=== PATIENT | female | born 1930 | race African-American/Black ===

== ENCOUNTER 2016-11-17 12:59 | Observation (INO) | payer MEDICARE ==
[~2016-11-17 12:59] MED LIST: ALBUTEROL17 GM INH; ASPIRIN325 MG PO; ATIVAN0.5 MG PO; BYSTOLIC10 MG PO; COLACE-T100 MG PO; CRESTOR10 MG PO; CYMBALTA60 MG PO; EXFORGE 10-3201 TAB PO; IMDUR30 MG PO; KETOTIFEN FUMARA5 ML LEFT EYE; LASIX40 MG PO; MICRO-K10 MEQ PO; NASONEX17 GM NS; NITROGLYCERIN0.4 MG SL; PRILOSEC20 MG PO; REFRESH EYE DRO50 EA BOTH EYES; REFRESH5 ML BOTH EYES; SINGULAIR10 MG PO; SYMBICORT 160-4.6 GM IH; TRAMADOL HCL50 MG PO; VICODIN 5/500 T1 TAB PO; XALATAN2.5 ML EACH EYE
[2016-11-17] MEDS ORDERED: DOXYCYCLINE HY100 M3 PO (13:30)
[2016-11-17] MEDS ORDERED: VIRTUSSIN AC L118 ML PO (13:30)
[2016-11-17] MEDS ORDERED: PREDNISONE10 M1 PO (13:30)
[2016-11-17] MEDS ORDERED: OMEPRAZOLE20 M3 PO (13:31)
[2016-11-17] MEDS ORDERED: BYSTOLIC20 M1 PO (13:31)
[2016-11-17] MEDS ORDERED: CYMBALTA60 M1 PO (13:31)
[2016-11-17] MEDS ORDERED: AMITRIPTYLINE H25 M1 PO (13:31)
[2016-11-17] MEDS ORDERED: SYMBICORT 160-1 PUFF INH (13:31)
[2016-11-17] MEDS ORDERED: ROSUVASTATIN CA20 MG PO (13:32)
[2016-11-17] MEDS ORDERED: ATIVAN0.5 M1 PO (13:32)
[2016-11-17] MEDS ORDERED: ASPIRIN EC81 MG PO (13:47)
[2016-11-17] MEDS ORDERED: PROAIR HFA8.5 GM INH (13:50)
[2016-11-17] MEDS ORDERED: IPRAT-ALBUT 0.5-3 ML INH (13:51)
[2016-11-17] MEDS ORDERED: COSOPT EYE DROP10 ML EACH EYE (13:52)
[2016-11-17] MEDS ORDERED: TYLENOL EXTRA500 M1 PO (13:52)
[2016-11-17] MEDS ORDERED: POTASSIUM CHLO10 ME2 PO (13:52)
[2016-11-17] MEDS ORDERED: VITAMIN D250000 UNI1 PO (13:53)
[2016-11-17] MEDS ORDERED: LASIX40 M1 PO (13:53)
[2016-11-17 14:21] LABS: BASO % 0.5 % (0-2); EOS % 2.5 % (0-7); EOSINOPHIL ABSOLUTE COUNT 0.2 tho/cmm (0.0-0.7); HCT-HEMATOCRIT 42.7 % (34.0-49.0); HGB-HEMOGLOBIN 14.3 gm/dl (12.0-15.5); IMMATURE GRANULOCYTES ABSOLUTE 0.01 tho/cmm (0-0.03); IMMATURE GRANULOCYTES PERCENT 0.2 % (0-0.3); LYMPH % 41.8 % (20-45); LYMPH ABSOLUTE COUNT 2.5 tho/cmm (0.8-4.5); MCH (MEAN CORPUSCULAR HGB) 30.3 pg (28.0-32.0); MCHC MEAN CORPUSCULAR HGB CONC 33.5 % (32.0-36.0); MCV (MEAN CELL VOLUME) 90.5 fl (82.0-96.0); MEAN PLATELET VOLUME 10.4 cmc (9.4-12.4); MONOCYTE ABSOLUTE COUNT 0.6 tho/cmm (0.0-1.2); NEUTROPHIL ABSOLUTE COUNT 2.7 tho/cmm (1.6-8.0); NEUTROPHIL-AUTOMATED 2.7 tho/cmm (1.6-8.0); PLATELET COUNT 253 tho/cmm (150-450); RED BLOOD COUNT 4.72 mil/cmm (4.00-5.20); RED CELL DISTRIBUTION WIDTH 14.1 % (12.4-16.4)
[2016-11-17 14:40] LABS: ALB/GLOB RATIO 0.8 (0.8-2.0); ALKALINE PHOSPHATASE 142 U/L (33-138); ALT/SGPT 27 U/L (12-78); ANION GAP 11 mmol/L (0-20); AST/SGOT 27 U/L (10-40); BILIRUBIN,DIRECT <0.1 mg/dl (0.0-0.3); BILIRUBIN,INDIRECT 0.3 mg/dL (0.0-1.0); BILIRUBIN,TOTAL 0.4 mg/dl (0-1.5); BLOOD UREA NITROGEN 15 mg/dl (6-24); CALCIUM 9.2 mg/dl (8.5-10.5); CARBON DIOXIDE-VENOUS 26 mmol/L (22-32); CHLORIDE 104 mmol/l (96-110); CREATININE 0.87 mg/dl (0.50-1.10); GLUCOSE 173 mg/dL (70-110); SODIUM 137 mmol/L (135-145); eGFR VALUE FOR BLACK 71 mL/Min
[2016-11-18 06:21] LABS: ANION GAP 11 mmol/L (0-20); BLOOD UREA NITROGEN 17 mg/dl (6-24); CARBON DIOXIDE-VENOUS 27 mmol/L (22-32); CHLORIDE 108 mmol/l (96-110); CREATININE 0.91 mg/dl (0.50-1.10); GLUCOSE 162 mg/dL (70-110); POTASSIUM 4.3 mmol/L (3.7-5.1); SODIUM 142 mmol/L (135-145); eGFR VALUE FOR BLACK 67 mL/Min
[2016-11-19 05:55] LABS: BLOOD UREA NITROGEN 12 mg/dl (6-24); CREATININE 0.81 mg/dl (0.50-1.10); eGFR VALUE FOR BLACK 77 mL/Min
[2016-11-20] MEDS ORDERED: CLOPIDOGREL75 M1 PO (11:13)
[2016-11-20] MEDS ORDERED: ISOSORBIDE MONO30 M4 PO (11:15)
[2016-11-20] MEDS ORDERED: NITROSTAT0.4 MG/TAB SL (11:16)
== END 2016-11-20 12:00 | disposition home health service (06) ==
LOC: EDMED 12:59 → EMR2 17:26 → CAR1 17:36
PROVIDERS: Emergency Medicine; Internal Medicine Cardiovascular Disease; Physician Assistant Medical; ADMIT Internal Medicine Clinical Cardiac Electrophysiology
PROC: B2131ZZ Fluoroscopy of Multiple Coronary Artery Bypass Grafts using Low Osmolar Contrast (ICD-10-PCS; principal; 2016-11-18)
DX: I25.10 Atherosclerotic heart disease of native coronary artery without angina pectoris (principal); I10 Essential (primary) hypertension; E78.5 Hyperlipidemia, unspecified; R51 Headache; J44.9 Chronic obstructive pulmonary disease, unspecified; G47.33 Obstructive sleep apnea (adult) (pediatric); K21.9 Gastro-esophageal reflux disease without esophagitis; Z91.14 Patient's other noncompliance with medication regimen; Z79.2 Long term (current) use of antibiotics; Z79.51 Long term (current) use of inhaled steroids; Z79.82 Long term (current) use of aspirin; Z79.899 Other long term (current) drug therapy; Z91.048 Other nonmedicinal substance allergy status; Z82.49 Family history of ischemic heart disease and other diseases of the circulatory system; Z90.49 Acquired absence of other specified parts of digestive tract; Z98.51 Tubal ligation status; Z95.1 Presence of aortocoronary bypass graft; Z97.0 Presence of artificial eye; Z98.890 Other specified postprocedural states
CPT/HCPCS: C1769; C1887; C1894; G0378; G8978-GP-CK; G8979-GP-CK; G8980-GP-CK; G8987-GO-CJ; G8988-GO-CI; G8989-GO-CJ; G8990-GO-CJ; J1644; J1650; J2250; J2270; J3010; J7030; Q9967